=== PATIENT | male | born 1955 | race Caucasian/White ===

== ENCOUNTER 2019-07-19 07:55 | Outpatient (CLI) | payer MEDICARE ==
[2019-07-19] MEDS ORDERED: METF500T17 PO (09:14)
[2019-07-19] MEDS ORDERED: AMLO1CAP54 PO (09:14)
[2019-07-19] MEDS ORDERED: SIMV20TA3 PO (09:14)
[2019-07-19] MEDS ORDERED: CHOL200074 PO (09:14)
[2019-07-19] MEDS ORDERED: MULT-516 PO (09:14)
[2019-07-19] MEDS ORDERED: CHLO25TA PO (09:14)
[2019-07-19] MEDS ORDERED: ALLO300T PO (09:14)
[2019-07-19] MEDS ORDERED: DICL50TA4 PO (09:14)
[2019-07-19] MEDS ORDERED: OMEG1CAP23 PO (09:14)
[2019-07-19] MEDS ORDERED: ASPI-515 PO (09:14)
[2019-07-19 09:20] LABS: BASOPHILS # (AUTO) 0.02 x10^3/uL (0-0.1); BASOPHILS % (AUTO) 0 % (0-1); EOSINOPHILS # (AUTO) 0.26 x10^3/uL (0-0.4); EOSINOPHILS % (AUTO) 3 % (1-7); LYMPHOCYTES # (AUTO) 1.96 x10^3/uL (1-3.4); LYMPHOCYTES % (AUTO) 20 % (22-44); MD NO; MEAN CORPUSCULAR HEMOGLOBIN 31.1 pg (27.5-34.5); MEAN CORPUSCULAR HGB CONC 33.1 g/dL (33.2-36.2); MEAN CORPUSCULAR VOLUME 93.8 fL (81-97); MEAN PLATELET VOLUME 8.2 fL (7.4-10.4); MONOCYTES # (AUTO) 0.62 x10^3/uL (0.2-0.8); MONOCYTES % (AUTO) 6 % (2-9); NEUTROPHILS # (AUTO) 6.89 x10^3/uL (1.8-6.8); NEUTROPHILS % (AUTO) 71 % (42-75); PLATELET COUNT 232 x10^3/uL (130-400); RED BLOOD COUNT 4.84 x10^6/uL (4.38-5.82); RED CELL DISTRIBUTION WIDTH 13.5 % (9.4-14.8)
[2019-07-19 09:27] LABS: INTERNATIONAL NORMALIZED RATIO 1.01 (0.93-1.1); PROTHROMBIN TIME 10.6 Seconds (9.6-11.5)
[2019-07-19 09:30] LABS: ALANINE AMINOTRANSFERASE 117 U/L (12-78); ANION GAP 10 mmol/L (5-15); CALCIUM 9.7 mg/dL (8.5-10.1); CHLORIDE 103 mmol/L (98-107); CREATININE 0.93 mg/dL (0.7-1.3)
[2019-07-19 09:33] LABS: ALKALINE PHOSPHATASE 77 U/L (45-117); BILIRUBIN,TOTAL 0.4 mg/dL (0.2-1.0); TOTAL PROTEIN 8.2 g/dL (6.4-8.2)
[2019-07-19 12:33] LABS: HEMOGLOBIN A1C 7.2 % (4.2-6.3)
[2019-07-25] MEDS ORDERED: TRAM50TA2 PO (09:03)
[2019-07-25] MEDS ORDERED: OXYC5TAB2 PO (09:03)
[2019-07-25] MEDS ORDERED: MELO7.5T31 PO (09:04)
== END 2019-07-19 23:59 | disposition home or self-care (01) ==
LOC: STAR 07:55
PROVIDERS: ATTEND Orthopaedic Surgery
DX: M17.11 Unilateral primary osteoarthritis, right knee (principal); M25.561 Pain in right knee
CPT/HCPCS: 36415; 80053; 83036; 85025; 85610; 85730; 87081; 93005